=== PATIENT | female | born 1950 | race Caucasian/White ===

== ENCOUNTER → 2017-02-25 | Outpatient (CLI) | payer OTHER, MEDICARE | LOC: BMCIMAGING 10:10 | PROVIDERS: ATTEND Obstetrics & Gynecology | DX: Z12.31 Encounter for screening mammogram for malignant neoplasm of breast (principal) | CPT/HCPCS: G0202 ==

== ENCOUNTER → 2017-03-20 | Outpatient (CLI) | payer OTHER, MEDICARE | LOC: FIMAGING 07:49 | PROVIDERS: ATTEND Physician Assistant | DX: M25.562 Pain in left knee (principal); Z96.652 Presence of left artificial knee joint; Z96.651 Presence of right artificial knee joint | CPT/HCPCS: 73562; 78315; A9503 ==

== ENCOUNTER → 2018-02-27 | Outpatient (CLI) | payer OTHER, MEDICARE | LOC: BMCIMAGING 09:32 | PROVIDERS: ATTEND Obstetrics & Gynecology | DX: Z12.31 Encounter for screening mammogram for malignant neoplasm of breast (principal) ==

== ENCOUNTER → 2019-02-27 | Outpatient (CLI) | payer OTHER, MEDICARE | LOC: BMCIMAGING 08:39 ==